=== PATIENT | female | born 1975 ===

== ENCOUNTER 2017-12-15 08:16 | Outpatient (CLI) | payer OTHER | END 2017-12-15 08:19 | disposition home or self-care (01) | LOC: SONOGRAMA 08:16 | DX: E04.1 Nontoxic single thyroid nodule (principal) ==

== ENCOUNTER 2019-06-24 05:38 | Day surgery (SDC) | payer OTHER | END 2019-06-24 10:05 | disposition home or self-care (01) | LOC: AMB-ENDOS 05:38 | DX: K63.5 Polyp of colon (principal); K64.2 Third degree hemorrhoids; Z12.11 Encounter for screening for malignant neoplasm of colon ==

== ENCOUNTER 2022-04-10 11:57 | Outpatient (CLI) | payer OTHER | END 2022-04-10 12:00 | disposition home or self-care (01) | LOC: SONOGRAMA 11:57 | PROVIDERS: ATTEND Pathology Anatomic Pathology & Clinical Pathology | DX: C37 Malignant neoplasm of thymus (principal) ==

== ENCOUNTER 2022-08-07 10:10 | Outpatient (CLI) | payer OTHER | END 2022-08-07 12:00 | disposition home or self-care (01) | LOC: SONOGRAMA 10:10 | PROVIDERS: ATTEND Pathology Anatomic Pathology & Clinical Pathology | DX: R59.9 Enlarged lymph nodes, unspecified (principal); Z85.71 Personal history of Hodgkin lymphoma ==